=== PATIENT | male | born 2000 | race Caucasian/White ===

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

== ENCOUNTER → 2019-01-23 | Outpatient (CLI) | payer OTHER ==
[~2019-01-23] MED LIST changes: +PREDNISONE10 MG PO
[2019-01-23 07:03] LABS: ALBUMIN 4.3 gm/dl (3.1-4.5); ALKALINE PHOSPHATASE 63 U/L (45-117); BUN 14 mg/dl (7-24); CHLORIDE 108 mmol/L (98-107); CREATININE 1.14 mg/dL (0.70-1.30); POTASSIUM 3.9 mmol/L (3.5-5.1); SGOT/AST 16 IU/L (3-35); SGPT/ALT 20 U/L (12-78); SODIUM 141 mmol/L (136-145); TOTAL PROTEIN 8.4 gm/dL (6.4-8.2)
== END ==
LOC: LAB 00:29
PROVIDERS: Student in an Organized Health Care Education/Training Program
DX: Z79.899 Other long term (current) drug therapy (principal)

== ENCOUNTER 2019-02-18 19:05 | Emergency (ER) | payer OTHER ==
[~2019-02-18] VITALS: Ht 182.8 cm; Wt 84.8 kg
[~2019-02-18 19:05] MED LIST changes: -PREDNISONE10 MG PO
[2019-02-22] MEDS ORDERED: PREDNISONE10 MG PO (15:40)
== END 2019-02-18 19:26 | disposition home or self-care (01) ==
LOC: ED 19:05
DX: L25.9 Unspecified contact dermatitis, unspecified cause (principal)

== ENCOUNTER → 2019-02-26 | Outpatient (CLI) | payer OTHER ==
[~2019-02-26] MED LIST changes: +PREDNISONE10 MG PO
[2019-02-26 09:34] LABS: CHOLESTEROL 156 mg/dL (<200); HDL CHOLESTEROL 54 mg/dl (40-60); LDL CHOLESTEROL 91 mg/dL (9-159); TRIGLYCERIDES 55 mg/dl (<150); VLDL CHOLESTEROL 11 mg/dL (6-40)
== END | disposition home or self-care (01) ==
LOC: LAB 00:12
PROVIDERS: Internal Medicine Nephrology
DX: Z79.899 Other long term (current) drug therapy (principal)

== ENCOUNTER 2019-07-30 18:12 | Emergency (ER) | payer OTHER ==
[~2019-07-30] VITALS: Ht 182.8 cm; Wt 90.7 kg
[2019-07-30] MEDS ORDERED: PREDNISONE10 MG PO (18:34)
[2019-07-30] MEDS ORDERED: VISTARIL50 MG PO (18:35)
== END 2019-07-30 19:00 | disposition home or self-care (01) ==
LOC: ED 18:12
DX: L25.5 Unspecified contact dermatitis due to plants, except food (principal); Z79.899 Other long term (current) drug therapy

== ENCOUNTER → 2020-02-19 | Outpatient (CLI) | payer OTHER ==
[~2020-02-19] MED LIST changes: +VISTARIL50 MG PO
[2020-02-19 13:00] LABS: CHOLESTEROL 173 mg/dL (<200); HDL CHOLESTEROL 48 mg/dl (40-60); LDL CHOLESTEROL 108 mg/dL (9-159); TRIGLYCERIDES 84 mg/dl (<150); VLDL CHOLESTEROL 17 mg/dL (6-40)
== END | disposition home or self-care (01) ==
LOC: LAB 12:06
PROVIDERS: ATTEND Internal Medicine
DX: Z79.899 Other long term (current) drug therapy (principal)

== ENCOUNTER → 2021-03-08 | Outpatient (CLI) | payer OTHER ==
[2021-03-08 06:08] LABS: CHOLESTEROL 131 mg/dL (<200); LDL CHOLESTEROL 66 mg/dL (9-159); TRIGLYCERIDES 116 mg/dl (<150)
== END | disposition home or self-care (01) ==
LOC: LAB 03-07 10:03
PROVIDERS: ATTEND Internal Medicine
DX: Z79.899 Other long term (current) drug therapy (principal)

== ENCOUNTER → 2021-09-08 | Outpatient (CLI) | payer OTHER | END | disposition home or self-care (01) | LOC: RESCLI 01:27 | PROVIDERS: ATTEND Internal Medicine | DX: M25.512 Pain in left shoulder (principal) ==

== ENCOUNTER → 2022-03-19 | Outpatient (CLI) | payer OTHER ==
[2022-03-19 09:37] LABS: CHOLESTEROL 141 mg/dL (<200); LDL CHOLESTEROL 84 mg/dL (9-159); TRIGLYCERIDES 136 mg/dl (<150)
== END | disposition home or self-care (01) ==
LOC: LAB 03-17 00:02
PROVIDERS: ATTEND Student in an Organized Health Care Education/Training Program
DX: Z79.899 Other long term (current) drug therapy (principal)

== ENCOUNTER → 2023-02-26 | Outpatient (CLI) | payer OTHER ==
[2023-02-26 14:43] LABS: CHOLESTEROL 186 mg/dL (<200); LDL CHOLESTEROL 119 mg/dL (9-159); TRIGLYCERIDES 118 mg/dl (<150)
== END | disposition home or self-care (01) ==
LOC: LAB 14:03
PROVIDERS: ATTEND Internal Medicine
DX: Z00.00 Encounter for general adult medical examination without abnormal findings (principal)